=== PATIENT | female | born 1995 | race Caucasian/White ===

== ENCOUNTER 2016-05-21 14:46 | Emergency (ER) | payer MEDICAID, OTHER ==
[~2016-05-21] VITALS: Ht 160 cm; Wt 118.0 kg
[2016-05-21 14:50] VITALS: Ht 160 cm; Wt 118.0 kg
[2016-05-21] MEDS ORDERED: HYDROCODONE/APAP (5/325) TAB PO ONE (15:30)
[2016-05-21] MEDS ORDERED: NAPR-260 PO (15:42)
[2016-05-21] MEDS ORDERED: HYDR-906 PO (15:42)
[2016-05-21] MEDS ORDERED: CYCL-319 PO (15:43)
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
== END 2016-05-21 15:52 | disposition home or self-care (01) ==
LOC: FTE 14:46
DX: M54.2 Cervicalgia (principal); M54.9 Dorsalgia, unspecified; Z04.1 Encounter for examination and observation following transport accident
CPT/HCPCS: Z7502; Z7610; 99284

== ENCOUNTER 2017-08-30 15:53 | Emergency (ER) | END 2017-08-30 17:24 | disposition home or self-care (01) ==